=== PATIENT | male | born 1945 | race Caucasian/White ===

== ENCOUNTER 2017-03-21 10:48 | Emergency (ER) | payer MEDICARE ==
[2017-03-21 11:16] VITALS: BP 151/77
--- NOTE | 2017-03-21 12:30 | UC ---
Wally Pendleton Angela, scribed for Adama Koenig MD on 03/21/17 at 1215 . Shortness of Breath HPI - HPI Summary HPI Summary: This pt is a 71 y/o male presenting to [facility] c/o intermittent shortness of breath for the last 2-3 days. He notes feeling weakness today upon waking up but had some relief after eating breakfast. Currently, pt feels short of breath again and struggles to get air in with no pain. Pt reports SOB when sleeping and with ambulation as well. 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 Pt reports using Windex to clean.Pt denies chest pain, chest tightness , chest pressure, cough, wheezing, sweating, fever, chills, leg pain or swelling , weight change, recent long travel. Pt denies any recent exercises and any PMHx of asthma, heart problems, and high cholesterol - History of Current Complaint Chief Complaint: UCGeneralIllness Stated Complaint: SOB Time Seen by Provider: 03/21/17 12:00 Hx Obtained From: Patient Onset/Duration: Lasting Days Timing: Intermittent Episodes Lasting: Aggrevating Factors: Movement, Recumbent Position Alleviating Factors: Nothing Associated Signs & Symptoms: Negative: Cough (Productive), Cough (Nonproductive) , Cough (Bloody Sputum), Wheezing, Chest Pain w/Cough, Chest Pain Unrelated to Cough, Fever, Chills, Diaphoresis, Calf Pain/Swelling - Allergy/Home Medications Allergies/Adverse Reactions: Allergies Allergy/AdvReac Type Severity Reaction Status Date / Time No Known Allergies Allergy Verified 03/21/17 11:09 Home Medications: Home Medications NK [No Home Medications Reported] 03/21/17 [History Confirmed 03/21/17] PMH/Surg Hx/FS Hx/Imm Hx - Surgical History Surgical History: Yes Surgery Procedure, Year, and Place: ear. right arm - Family History Known Family History: Positive: Cardiac Disease - Father Negative: Hypertension - Social History Alcohol Use: Rare Substance Use Type: None Smoking Status (MU): Former Smoker Review of Systems Constitutional: Negative Skin: Negative Eyes: Negative ENT: Negative Respiratory: Shortness Of Breath Cardiovascular: Negative Gastrointestinal: Negative Musculoskeletal: Negative Neurological: Weakness All Other Systems Reviewed And Are Negative: Yes Physical Exam Triage Information Reviewed: Yes Vital Signs: Initial Vital Signs Temp 98.9 F 03/21/17 11:10 Pulse 66 03/21/17 11:10 Resp 16 03/21/17 11:10 BP 151/77 03/21/17 11:10 Pulse Ox 100 03/21/17 11:10 Vital Signs Reviewed: Yes - Additional Comments The patient is well-nourished in no acute distress and in no acute pain. The skin is warm and dry and skin color reflects adequate perfusion. HEENT: The head is normocephalic and atraumatic. The pupils are equal and reactive. The conjunctivae are clear and without drainage. Nares are patent and without drainage. Neck is supple with full range of motion and non-tender. There is no neck vein distension. Respiratory: Chest is non-tender. Lungs are clear to auscultation and breath sounds are symmetrical and equal. Cardiovascular: Hear is regular rate and rhythm. There is no murmur or rub auscultated. There is no peripheral edema and pulses are symmetrical and equal. The capillary refill is less than 2 seconds. The pt is not cyanotic. Abdomen: The abdomen is soft and non-tender. There are normal bowel sounds heard in all four quadrants and there is no organomegaly palpated. Musculoskeletal: There is no back pain noted. Extremities are non-tender with full range of motion. There is good capillary refill. There is no peripheral edema or calf tenderness elicited. Neurological: Patient is alert and oriented to person, place and time. The patient has symmetrical motor strength in all four extremities. Psychiatric: The patient has an appropriate affect and does not exhibit any anxiety or depression. Diagnostics - EKG Cardiac Rate: NL Cardiac Rhythm: LBBB: New ST Segment: Normal Shortness of Breath Dx - Course Course Of Treatment: I explained to the pt we are unable to do diagnostic work up and recommend transfer to the ED for further work up. The pt agreed to this plan. We will discharge him to the ED. - Differential Dx/Diagnosis Differential Diagnosis/HQI/PQRI: Bronchitis, CHF, IN, Pneumonia, Pulmonary Embolism Provider Diagnoses: Dyspnea. Elevated BP Discharge - Discharge Plan Condition: Stable Disposition: OTHER Discharge Disposition Comment: Discharged to go to the Emergency Department for further work up. Patient Education Materials: Dyspnea (ED) Additional Instructions: Your blood pressure was elevated at this visit. Please follow up with your primary care provider regarding your blood pressure reading. Please go to the Emergency Department for further work up regarding your dyspnea. The documentation as recorded by the Wally luna Angela accurately reflects the service I personally performed and the decisions made by me, Adama Koenig MD.
== END 2017-03-21 12:33 ==
LOC: UCEAST 10:48
DX: R06.00 Dyspnea, unspecified (principal); R03.0 Elevated blood-pressure reading, without diagnosis of hypertension; Z87.891 Personal history of nicotine dependence; R94.31 Abnormal electrocardiogram [ECG] [EKG]
CPT/HCPCS: 93005; 99201; G0463

== ENCOUNTER 2017-03-21 13:52 | Inpatient (IN) | payer MEDICARE ==
[2017-03-21 14:40] LABS: Hematocrit 46 % (42-52); Hemoglobin 15.4 g/dl (14.0-18.0); Mean Corpuscular HGB Conc 33 g/dl (31-36); Mean Corpuscular Hemoglobin 30 pg (27-31); Mean Corpuscular Volume 89 fL (80-94); Mean Platelet Volume 8 um3 (7.4-10.4); Red Blood Count 5.19 10^6/ul (4.0-5.4); Red Cell Distribution Width 13 % (10.5-15); White Blood Count 6.4 10^3/ul (3.5-10.8)
--- NOTE | 2017-03-21 14:52 | RAD ---
HISTORY: Shortness of breath COMPARISONS: None VIEWS: 5: Frontal dual-energy and lateral views of the chest. FINDINGS: CARDIOMEDIASTINAL SILHOUETTE: The cardiomediastinal silhouette is normal. RAMIRO: The ramiro are normal. PLEURA: The costophrenic angles are sharp. No pleural abnormalities are noted. LUNG PARENCHYMA: The lungs are clear. ABDOMEN: The upper abdomen is clear. There is no subphrenic gas. BONES AND SOFT TISSUES: Degenerative changes are noted along the spine. OTHER: None. IMPRESSION: NO ACTIVE CARDIOPULMONARY DISEASE.
[2017-03-21 14:53] LABS: Albumin 4.2 g/dL (3.2-5.2); BUN/Creatinine Ratio 19.2 (8-20); Calcium 9.2 mg/dL (8.6-10.3); EGFR African American 125.8 (>60); EGFR Non-African American 97.8 (>60); Globulin 2.7 g/dL (2-4); Potassium 4.1 mmol/L (3.5-5.0); Total Bilirubin 0.7 mg/dL (0.2-1.0); Total Protein 6.9 g/dL (6.4-8.9)
[2017-03-21] MEDS ORDERED: Acetaminophen TAB* 325 MG PO PRN (16:42)
[2017-03-21] MEDS ORDERED: Ondansetron INJ* 2 MG/ML VIAL IV PRN (16:42)
[2017-03-21] MEDS ORDERED: cefTRIAXone VIAL(*) 1,000 MG in NS 0.9% 50 ML* 50 ML IVPB SCH (17:00)
[2017-03-21 17:05] LABS: Magnesium 1.9 mg/dL (1.9-2.7)
[2017-03-21 17:16] LABS: TSH (Thyroid Stimulating Horm) 1.4 mcIU/mL (0.34-5.60)
--- NOTE | 2017-03-21 18:34 | ED ---
Eliseo Pendleton Benjamin, scribed for Kenneth Jacobson MD on 03/21/17 at 1415 . Shortness of Breath - HPI Summary HPI Summary: 71yo male c/o intermittent SOB that comes and goes independent from exertion. Pt was first seen at and comes to ED for further evaluation. Pt states gradual onset since 3-4 days ago. Pt also reports difficulty digesting; pt has been burping very frequently after meal. Pt denies leg swelling or CP. No cardiac and respiratory hx and surgical hx of inner ear surgery. - History of Current Complaint Chief Complaint: EDShortnessOfBreath Time Seen by Provider: 03/21/17 14:00 Hx Obtained From: Patient, Family/Harvester Operator - Onset/Duration: Lasting Days - 3-4 days, Still Present Timing: Intermittent Episodes Lasting: Current Severity: Mild Dyspnea At: Rest Aggrevating Factors: Nothing Alleviating Factors: Nothing Associated Signs & Symptoms: Negative - Allergy/Home Medications Allergies/Adverse Reactions: Allergies Allergy/AdvReac Type Severity Reaction Status Date / Time No Known Allergies Allergy Verified 03/21/17 11:09 PMH/Surg Hx/FS Hx/Imm Hx Cardiovascular History: Denies: Hx Coronary Artery Disease, Hx Hypertension - Surgical History Surgery Procedure, Year, and Place: ear. right arm Infectious Disease History: Denies: Traveled Outside the [place] in Last 30 Days - Family History Known Family History: Positive: Cardiac Disease - Father Negative: Hypertension - Social History Occupation: Retired Lives: With Family Alcohol Use: Rare Substance Use Type: Reports: None Smoking Status (MU): Never Smoked Tobacco Review of Systems Constitutional: Negative Eyes: Negative ENT: Negative Negative: Chest Pain Positive: Shortness Of Breath. Negative: Cough Gastrointestinal: Negative Genitourinary: Negative Musculoskeletal: Negative Skin: Negative Neurological: Negative Psychological: Normal All Other Systems Reviewed And Are Negative: Yes Physical Exam Triage Information Reviewed: Yes Vital Signs On Initial Exam: Initial Vitals Temp Pulse Resp BP Pulse Ox 97.8 F 75 16 163/96 98 03/21/17 13:54 03/21/17 13:54 03/21/17 13:54 03/21/17 13:54 03/21/17 13:54 Vital Signs Reviewed: Yes Appearance: Positive: Well-Appearing, No Pain Distress, Well-Nourished Skin: Positive: Warm, Skin Color Reflects Adequate Perfusion, Dry Head/Face: Positive: Normal Head/Face Inspection Eyes: Positive: Normal ENT: Positive: Normal ENT inspection, Hearing grossly normal Neck: Positive: Supple, Nontender Respiratory/Lung Sounds: Positive: Clear to Auscultation, Breath Sounds Present Cardiovascular: Positive: IRR - Irregularly irregular beat, Murmur - soft systolic ejection murmurs. Abdomen Description: Positive: Nontender, Soft Bowel Sounds: Positive: Present Musculoskeletal: Positive: Strength/ROM Intact Neurological: Positive: Sensory/Motor Intact, Alert, Oriented to Person Place, Time Psychiatric: Positive: Affect/Mood Appropriate Diagnostics - Vital Signs Vital Signs Temp Pulse Resp BP Pulse Ox 03/21/17 13:54 97.8 F 75 16 163/96 98 - Laboratory Lab Results: Lab Results 03/21/17 03/21/17 03/21/17 Range/Units 14:15 14:15 14:15 WBC 6.4 (3.5-10.8) 10^3/ul RBC 5.19 (4.0-5.4) 10^6/ul Hgb 15.4 (14.0-18.0) g/dl Hct 46 (42-52) % MCV 89 (80-94) fL MCH 30 (27-31) pg MCHC 33 (31-36) g/dl RDW 13 (10.5-15) % Plt Count 260 (150-450) 10^3/ul MPV 8 (7.4-10.4) um3 Neut % (Auto) 70.0 (38-83) % Lymph % (Auto) 20.8 L (25-47) % [place] % (Auto) 7.1 (1-9) % Eos % (Auto) 1.5 (0-6) % Baso % (Auto) 0.6 (0-2) % Absolute Neuts (auto) 4.5 (1.5-7.7) 10^3/ul Absolute Lymphs (auto) 1.3 (1.0-4.8) 10^3/ul Absolute Monos (auto) 0.5 (0-0.8) 10^3/ul Absolute Eos (auto) 0.1 (0-0.6) 10^3/ul Absolute Basos (auto) 0 (0-0.2) 10^3/ul Absolute Nucleated RBC 0 10^3/ul Nucleated RBC % 0 INR (Anticoag Therapy) (0.89-1.11) D-Dimer, Quantitative (Less Than 230) ng/mL Sodium 135 (133-145) mmol/L Potassium 4.1 (3.5-5.0) mmol/L Chloride 103 (101-111) mmol/L Carbon Dioxide 26 (22-32) mmol/L Anion Gap 6 (2-11) mmol/L BUN 15 (6-24) mg/dL Creatinine 0.78 (0.67-1.17) mg/dL Est GFR ( Amer) 125.8 (>60) Est GFR (Non-Af Amer) 97.8 (>60) BUN/Creatinine Ratio 19.2 (8-20) Glucose 163 H (70-100) mg/dL Lactic Acid 1.2 (0.5-2.0) mmol/L Calcium 9.2 (8.6-10.3) mg/dL Magnesium 1.9 (1.9-2.7) mg/dL Total Bilirubin 0.70 (0.2-1.0) mg/dL AST 16 (13-39) U/L ALT 13 (7-52) U/L Alkaline Phosphatase 63 (34-104) U/L Troponin I 0.00 (<0.04) ng/mL B-Natriuretic Peptide ( - 100) pg/mL Total Protein 6.9 (6.4-8.9) g/dL Albumin 4.2 (3.2-5.2) g/dL Globulin 2.7 (2-4) g/dL Albumin/Globulin Ratio 1.6 (1-3) TSH 1.40 (0.34-5.60) mcIU/mL 03/21/17 03/21/17 Range/Units 14:15 14:15 WBC (3.5-10.8) 10^3/ul RBC (4.0-5.4) 10^6/ul Hgb (14.0-18.0) g/dl Hct (42-52) % MCV (80-94) fL MCH (27-31) pg MCHC (31-36) g/dl RDW (10.5-15) % Plt Count (150-450) 10^3/ul MPV (7.4-10.4) um3 Neut % (Auto) (38-83) % Lymph % (Auto) (25-47) % [place] % (Auto) (1-9) % Eos % (Auto) (0-6) % Baso % (Auto) (0-2) % Absolute Neuts (auto) (1.5-7.7) 10^3/ul Absolute Lymphs (auto) (1.0-4.8) 10^3/ul Absolute Monos (auto) (0-0.8) 10^3/ul Absolute Eos (auto) (0-0.6) 10^3/ul Absolute Basos (auto) (0-0.2) 10^3/ul Absolute Nucleated RBC 10^3/ul Nucleated RBC % INR (Anticoag Therapy) 0.96 (0.89-1.11) D-Dimer, Quantitative < 200 (Less Than 230) ng/mL Sodium (133-145) mmol/L Potassium (3.5-5.0) mmol/L Chloride (101-111) mmol/L Carbon Dioxide (22-32) mmol/L Anion Gap (2-11) mmol/L BUN (6-24) mg/dL Creatinine (0.67-1.17) mg/dL Est GFR ( Amer) (>60) Est GFR (Non-Af Amer) (>60) BUN/Creatinine Ratio (8-20) Glucose (70-100) mg/dL Lactic Acid (0.5-2.0) mmol/L Calcium (8.6-10.3) mg/dL Magnesium (1.9-2.7) mg/dL Total Bilirubin (0.2-1.0) mg/dL AST (13-39) U/L ALT (7-52) U/L Alkaline Phosphatase (34-104) U/L Troponin I (<0.04) ng/mL B-Natriuretic Peptide 136 H ( - 100) pg/mL Total Protein (6.4-8.9) g/dL Albumin (3.2-5.2) g/dL Globulin (2-4) g/dL Albumin/Globulin Ratio (1-3) TSH (0.34-5.60) mcIU/mL Result Diagrams: 03/21/17 14:15 03/21/17 14:15 Lab Statement: Any lab studies that have been ordered have been reviewed, and results considered in the medical decision making process. - EKG 1406. Cardiac Rate: NL - 83bpm EKG Rhythm: Sinus Rhythm Ectopy: None EKG Interpretation: Ventricular trigeminy, borderline RBBB Course/Dx - Course Course Of Treatment: Reviewed pts medication and allergy lists. High blood pressure noted. Assessment/Plan: Mr. Hernadez has had episodes of SOB accompanied (in retrospect) by fluttering in his chest. He was found to be in trigeminy on arrival and to have frequent VPC's while here. He will be admitted to a monitored bed for further W/U. - Diagnoses Provider Diagnoses: Dyspnea, Ventricular trigeminy - Physician Notifications Discussed Care of Patient With: Dr. Rosales, Dr. Moreno Discharge - Discharge Plan Condition: Stable Disposition: ADMITTED TO [facility] The documentation as recorded by the Eliseo luna Benjamin accurately reflects the service I personally performed and the decisions made by me, Kenneth Jacobson MD.
[2017-03-21] MEDS: Heparin VIAL(*) 5000 UNITS/ML VIAL (FIVE THOUSAND) SUBCUT SCH ×2 (21:34→22:03)
--- NOTE | 2017-03-21 22:19 | HP ---
HISTORY AND PHYSICAL: DATE OF ADMISSION: 03/21/17 PRIMARY CARE PROVIDER: None. ATTENDING PHYSICIAN WHILE IN THE HOSPITAL: Malissa Moreno DO * (report dictated by Tristen Alicea NP). CHIEF COMPLAINT: 1. Dyspnea on exertion. 2. Weakness. HISTORY OF PRESENT ILLNESS: Mr. Hernadez is a 71-year-old male patient with really no past medical history, comes in today. He says he has had about 3 days of having worsening shortness of breath particularly with exertion. He has noticed that his activity level has decreased. He has noticed that he just has not been feeling well. He notes when he goes up a flight of stairs, he feels like he is pretty tired and he also feels short of breath. He went to [facility] today. It was found that he was in trigeminy and he was sent to the ER to be evaluated. He specifically denies having any chest pressure. He denies having any shortness of breath now. Denies any orthopnea. Denies any syncopal episodes. Denies having any palpitations. He says he does take an aspirin daily, but there was concern because of the trigeminy, and we were asked to evaluate for admission. He does state that recently about 5 weeks ago , he was noted to have a bull's eye type lesion after a tick bite, he was put on doxycycline. He took it for a total of 7 days instead of the full 10 as it was bothering his stomach. He did say that shortly thereafter the antibiotics, he noticed another rash, he was prescribed a topical antibiotic and it went away with that. Unfortunately, though he came in today, he was found to be in trigeminy and the hospitalist service was asked to evaluate for admission. PAST MEDICAL HISTORY: It was denied. PAST SURGICAL HISTORY: He has had left ear surgery. HOME MEDICATIONS: Include aspirin 81 mg daily. ALLERGIES TO MEDICATIONS: Include no known drug allergies. FAMILY HISTORY: Mother had a heart attack. Father had a history of cancer and CAD. SOCIAL HISTORY: He does not smoke, does not drink. The surrogate decision maker is his . REVIEW OF SYSTEMS: There is no documented fever. He denied having any significant weight change. There was no double vision. He denies having any ear discharge. There was no rhinorrhea. There was no sore throat. No thyroid enlargement. Denied having any chest pain. There was no orthopnea. No nocturnal dyspnea. No dyspnea on exertion. There was no abdominal pain. No nausea. No vomiting. No dysuria. No frequency. No seizure. No loss of consciousness. No pruritus. No skin ulcerations. Review of 14 systems was completed, all others negative. PHYSICAL EXAMINATION GENERAL: At this time, Mr. Hernadez is 71-year-old male patient. He appears to be well nourished, well developed and does not appear to be in any acute distress. VITAL SIGNS: Blood pressure 134/74, pulse of 72, respirations 17, O2 sat 96%, temperature 99.6. HEENT: Head is atraumatic, normocephalic. Eyes: EOMs intact. Sclerae are anicteric, not pale. Throat: Oral mucosa appears to be moist. No oropharyngeal erythema. NECK: Supple. LUNGS: Clear to auscultation. No wheezes, rales, or rhonchi. HEART: Sounds S1, S2. Irregular rate and rhythm. No murmurs, rubs, or gallops. ABDOMEN: Soft, flat, and nontender. Bowel sounds present. EXTREMITIES: Pulses 2+ throughout. He is able to move all 4 extremities with 5 /5 strength. NEUROLOGIC: The patient is awake, alert, and oriented x3. Tongue midline. Pool Lifeguard were equal. No gross focal deficits. SKIN: Grossly intact. LABORATORY DATA/DIAGNOSTIC STUDIES: Labs today revealed WBC 6.4, RBC of 5.19, hemoglobin 15.4, hematocrit 46, platelet count of 260. INR 0.96. D-dimer less than 200. Sodium 135, potassium of 4, chloride of 103, bicarb 26, BUN 15, creatinine 0.78, glucose 162. Lactic 1.2. Calcium 9.2. Total bili 0.7. AST 16, ALT 13, alk phos 60. Troponin 0. BNP 136. Albumin of 4.2. He had a chest x-ray obtained today as well, which revealed no active cardiopulmonary disease. EKG showed sinus rhythm with trigeminy, no ST elevation or T-wave inversions. No previous for comparison. Old medical records were reviewed. ASSESSMENT AND PLAN: Mr. Hernadez is a 71-year-old male patient coming in to the ER today with complaints of dyspnea on exertion, fatigue, just not feeling well with recent Lyme exposure. He will be admitted under observation status for: 1. Trigeminy. Again, certainly Lyme typically causes heart block, but I do think it would be warranted to put him on Rocephin. I did place a call out to our ID specialist to see if he has seen this before. I do think that we should check mag, TSH, echo, stress test as well. Place him on telemetry. He is to continue the aspirin and follow him closely and I am putting him empirically on antibiotics and we will send off Lyme serology. Check lipid panel, A1c. Start him on baby aspirin. Continue to follow. 2. DVT prophylaxis. He will be placed on heparin subcu. 3. Code status, full code. 4. Fluids, electrolytes, and nutrition. He can have a heart heathy diet, then he will be n.p.o. after midnight. TIME SPENT: Time spent on the admission was 60 minutes, greater than half the time spent [id number] with the patient obtaining my history and physical; other half time spent going over the plan of care with the patient and implementing the plan of care. I discussed the plan of care with my attending, Dr. Moreno, who is in agreement. TRISTEN ALICEA NP [id number]/CPS #: [id number] KRISTIN
[2017-03-22 05:05] LABS: Hematocrit 44 % (42-52); Mean Corpuscular HGB Conc 34 g/dl (31-36); Mean Corpuscular Hemoglobin 30 pg (27-31); Mean Corpuscular Volume 89 fL (80-94); Mean Platelet Volume 8 um3 (7.4-10.4); Red Blood Count 4.97 10^6/ul (4.0-5.4); Red Cell Distribution Width 13 % (10.5-15); White Blood Count 5.7 10^3/ul (3.5-10.8)
[2017-03-22 05:21] LABS: BUN/Creatinine Ratio 19.3 (8-20); Calcium 9.5 mg/dL (8.6-10.3); EGFR African American 117.1 (>60); EGFR Non-African American 91.1 (>60); HDL Cholesterol 50.9 mg/dL; Potassium 4.3 mmol/L (3.5-5.0)
[2017-03-22] MEDS: Heparin VIAL(*) 5000 UNITS/ML VIAL (FIVE THOUSAND) SUBCUT SCH ×2 (06:10→14:18)
[2017-03-22] MEDS ORDERED: Aspirin Low Dose CHEW TAB* 81 MG PO SCH (09:00)
[2017-03-22] MEDS ORDERED: Lisinopril TAB* 5 MG PO SCH (10:00)
--- NOTE | 2017-03-22 10:08 | RAD ---
INDICATION: Chest pain COMPARISON: None TECHNIQUE: A single day SPECT protocol was utilized. Rest images were acquired following the intravenous injection of 10.2 millicuries of technetium 99m tetrofosmin. Exercise stress images were acquired following the intravenous administration of 25.8 millicuries of technetium 99m tetrofosmin. The examination could not be gated due to cardiac arrhythmia The patient was exercised to a peak heart rate of 208 which is greater than 100% of age predicted maximum. FINDINGS: There are no defects of the stress-induced or fixed nature. The cardiac chamber size is normal. Wall motion and ejection fraction could not be calculated due to arrhythmia. IMPRESSION: A NON GATED EXAMINATION DEMONSTRATES NO DEFECTS OF A STRESS-INDUCED OR FIXED NATURE ASSESSMENT: LOW-RISK Based on imaging criteria from ACC/AHA 2002 Guideline Update for the Management of Patients With Chronic Stable Angina Table 23. Noninvasive Risk Stratification.
--- NOTE | 2017-03-22 12:13 | ECHO ---
Patient: CASTRO STRATTON [facility] Rec#: [id number] : 1945 Date: 03/22/2017 Age: 71y Height: 187.96 cm / 74.0 in Weight: 81.65 kg / 180.0 lbs Sex: M BSA: 2.08 Room#: 431 Admit Date#: 03/21/2017 Type: Inpatient Referring: Jose Huffman NP Reading: Marly Santos MD Rocket Motor Tester: Genoveva Salazar [facility] Transthoracic Echocardiogram Indication: Trigeminy BP: 121/81 HR: 56 Rhythm: Bradycardia Findings History: Recent tick bite with a rash, SOB. Technical Comments: The study quality is good. Completed at 1205. Left Ventricle: The left ventricular chamber size is normal. There is normal left ventricular systolic function. The estimated ejection fraction is 55-60%. The assessment of diastolic function is non-diagnostic. Left Atrium: The left atrium is normal in size. Right Ventricle: The right ventricular cavity size is normal. The right ventricular global systolic function is normal. Right Atrium: The right atrial cavity size is normal. Aortic Valve: The aortic valve is trileaflet. There is mild aortic regurgitation. There is no evidence of aortic stenosis. Mitral Valve: The mitral valve leaflets are mildly thickened. There is a trace of mitral regurgitation. There is no evidence of mitral stenosis. Tricuspid Valve: The tricuspid valve leaflets are normal. There is a physiologic tricuspid regurgitation. Unable to estimate the right ventricular systolic pressure. Pulmonic Valve: The pulmonic valve structure is not well visualized. Pericardium: A pericardial fat pad is visualized. Aorta: There is mild dilatation of the ascending aorta. There is no dilatation of the aortic arch. There is mild dilatation of the aortic root. Pulmonary Artery: The main pulmonary artery is not well visualized. Venous: The venous system is not well visualized. Conclusions The left ventricular chamber size is normal. There is normal left ventricular systolic function. The estimated ejection fraction is 55-60%. The right ventricular global systolic function is normal. There is mild aortic regurgitation. There is a trace of mitral regurgitation. There is mild dilatation of the ascending aorta. No prior echo to compare. Measurements Name Value Normal Range RVIDd (AP) 2D 2.7 cm (0.9 - 2.6) RVDdMajor (2D) 2.6 cm (2.2 - 4.4) RAd ISD 4CH 5.8 cm (3.4 - 4.9) RA (A4C)W 3.5 cm (2.9 - 4.6) IVSd (2D) 1 cm (0.6 - 1) LVPWd (2D) 1 cm (0.6 - 1) LVIDd (2D) 4 cm (3.6 - 5.4) LVIDs (2D) 2.5 cm - LV FS (2D) 38 % (25 - 45) Aortic Annulus 2.2 cm (1.4 - 2.6) Ao root diameter (2D) 3.7 cm (2.1 - 3.5) Ascending Ao 3.6 cm (2.1 - 3.4) Aortic arch 2.3 cm (1.8 - 3.4) Descending Ao 0.6 cm - LA dimension (AP) 2D 3.2 cm (2.3 - 3.8) LAd ISD 4CH 4.5 cm (2.9 - 5.3) LA ISD 4CH W 3.8 cm (2.5 - 4.5) Name Value Normal Range LA ESV SP 4CH (A/L) 48 ml - LA ESV SP 2CH (A/L) 35 ml - LA ESV BP (A/L) 44 ml - LA ESV BP (A/L) index 21.19 ml/m2 - LA ESV SP 4CH (MOD) 45 ml - LA ESV SP 2CH (MOD) 30 ml - Name Value Normal Range MV E-wave Vmax 0.7 m/sec - MV deceleration time 208 msec - MV A-wave Vmax 0.7 m/sec - MV E:A ratio 1.04 ratio - LV septal e' Vmax 0.07 m/sec - LV lateral e' Vmax 0.13 m/sec - LV E:e' septal ratio 10 ratio - LV E:e' lateral ratio 5.38 ratio - Name Value Normal Range AV Vmax 1.2 m/sec - AV VTI 31.5 cm - AV peak gradient 5.88 mmHg - AV mean gradient 2.61 mmHg - LVOT Vmax 1.1 m/sec - LVOT VTI 23.7 cm - LVOT peak gradient 4.83 mmHg - LVOT mean gradient 2.26 mmHg - AR PHT 632 msec - AR peak gradient 49.92 mmHg - Name Value Normal Range PV Vmax 0.9 m/sec - PV peak gradient 3.29 mmHg -
--- NOTE | 2017-03-22 17:26 | PN ---
Subjective Date of Service: 03/22/17 Interval History: Pt had hypertensive response to treadmill with SBP in 240's with non sustained SVT in recovery phase. then became diaphoretic and flushed in nuclear lab. / afterward ate breakfast and feels well now. Has had had CAZARES for several weeks. Relocated from [place] this year and has no PCP Objective Active Medications: Acetaminophen (Tylenol Tab*) 650 mg PO Q4H PRN PRN Reason: FEVER/PAIN Aspirin (Aspirin Low Dose Tab*) 81 mg PO DAILY PENDING SALE TO [facility] Last Admin: 03/22/17 10:34 Dose: 81 mg Heparin Sodium (Porcine) (Heparin Vial(*)) 5,000 units SUBCUT Q8HR PENDING SALE TO [facility] Last Admin: 03/22/17 14:18 Dose: 5,000 units Lisinopril (Prinivil Tab*) 5 mg PO DAILY PENDING SALE TO [facility] Last Admin: 03/22/17 10:34 Dose: 5 mg Ondansetron HCl (Zofran Inj*) 4 mg IV Q6H PRN PRN Reason: NAUSEA Vital Signs 03/22/17 15:11 Temperature 97.7 F Pulse Rate 80 Respiratory 16 Rate Blood Pressure 124/67 (mmHg) O2 Sat by Pulse 100 Oximetry Oxygen Devices in Use Now: None Appearance: 71 yo f in nAD, aAOx3 Eyes: No Scleral Icterus, PERRLA Ears/Nose/Mouth/Throat: NL Teeth, Lips, Gums, Mucous Membranes Moist Neck: NL Appearance and Movements; NL JVP, Trachea Midline Respiratory: Symmetrical Chest Expansion and Respiratory Effort, Clear to Auscultation Cardiovascular: NL Sounds; No Murmurs; No JVD, RRR Abdominal: NL Sounds; No Tenderness; No Distention Lymphatic: No Cervical Adenopathy Extremities: No Edema, No Clubbing, Cyanosis Skin: No Rash or Ulcers, No Nodules or Sclerosis Neurological: Alert and Oriented x 3, NL Muscle Strength and Tone Result Diagrams: 03/22/17 04:57 03/22/17 04:57 Additional Lab and Data: Lab Results 03/21/17 03/21/17 03/21/17 Range/Units 14:15 14:15 14:15 WBC 6.4 (3.5-10.8) 10^3/ul RBC 5.19 (4.0-5.4) 10^6/ul Hgb 15.4 (14.0-18.0) g/dl Hct 46 (42-52) % MCV 89 (80-94) fL MCH 30 (27-31) pg MCHC 33 (31-36) g/dl RDW 13 (10.5-15) % Plt Count 260 (150-450) 10^3/ul MPV 8 (7.4-10.4) um3 Neut % (Auto) 70.0 (38-83) % Lymph % (Auto) 20.8 L (25-47) % Banner % (Auto) 7.1 (1-9) % Eos % (Auto) 1.5 (0-6) % Baso % (Auto) 0.6 (0-2) % Absolute Neuts (auto) 4.5 (1.5-7.7) 10^3/ul Absolute Lymphs (auto) 1.3 (1.0-4.8) 10^3/ul Absolute Monos (auto) 0.5 (0-0.8) 10^3/ul Absolute Eos (auto) 0.1 (0-0.6) 10^3/ul Absolute Basos (auto) 0 (0-0.2) 10^3/ul Absolute Nucleated RBC 0 10^3/ul Nucleated RBC % 0 INR (Anticoag Therapy) (0.89-1.11) D-Dimer, Quantitative (Less Than 230) ng/mL Sodium 135 (133-145) mmol/L Potassium 4.1 (3.5-5.0) mmol/L Chloride 103 (101-111) mmol/L Carbon Dioxide 26 (22-32) mmol/L Anion Gap 6 (2-11) mmol/L BUN 15 (6-24) mg/dL Creatinine 0.78 (0.67-1.17) mg/dL Est GFR ( Amer) 125.8 (>60) Est GFR (Non-Af Amer) 97.8 (>60) BUN/Creatinine Ratio 19.2 (8-20) Glucose 163 H (70-100) mg/dL Lactic Acid 1.2 (0.5-2.0) mmol/L Calcium 9.2 (8.6-10.3) mg/dL Magnesium 1.9 (1.9-2.7) mg/dL Total Bilirubin 0.70 (0.2-1.0) mg/dL AST 16 (13-39) U/L ALT 13 (7-52) U/L Alkaline Phosphatase 63 (34-104) U/L Troponin I 0.00 (<0.04) ng/mL B-Natriuretic Peptide ( - 100) pg/mL Total Protein 6.9 (6.4-8.9) g/dL Albumin 4.2 (3.2-5.2) g/dL Globulin 2.7 (2-4) g/dL Albumin/Globulin Ratio 1.6 (1-3) TSH 1.40 (0.34-5.60) mcIU/mL 03/21/17 03/21/17 Range/Units 14:15 14:15 WBC (3.5-10.8) 10^3/ul RBC (4.0-5.4) 10^6/ul Hgb (14.0-18.0) g/dl Hct (42-52) % MCV (80-94) fL MCH (27-31) pg MCHC (31-36) g/dl RDW (10.5-15) % Plt Count (150-450) 10^3/ul MPV (7.4-10.4) um3 Neut % (Auto) (38-83) % Lymph % (Auto) (25-47) % Banner % (Auto) (1-9) % Eos % (Auto) (0-6) % Baso % (Auto) (0-2) % Absolute Neuts (auto) (1.5-7.7) 10^3/ul Absolute Lymphs (auto) (1.0-4.8) 10^3/ul Absolute Monos (auto) (0-0.8) 10^3/ul Absolute Eos (auto) (0-0.6) 10^3/ul Absolute Basos (auto) (0-0.2) 10^3/ul Absolute Nucleated RBC 10^3/ul Nucleated RBC % INR (Anticoag Therapy) 0.96 (0.89-1.11) D-Dimer, Quantitative < 200 (Less Than 230) ng/mL Sodium (133-145) mmol/L Potassium (3.5-5.0) mmol/L Chloride (101-111) mmol/L Carbon Dioxide (22-32) mmol/L Anion Gap (2-11) mmol/L BUN (6-24) mg/dL Creatinine (0.67-1.17) mg/dL Est GFR ( Amer) (>60) Est GFR (Non-Af Amer) (>60) BUN/Creatinine Ratio (8-20) Glucose (70-100) mg/dL Lactic Acid (0.5-2.0) mmol/L Calcium (8.6-10.3) mg/dL Magnesium (1.9-2.7) mg/dL Total Bilirubin (0.2-1.0) mg/dL AST (13-39) U/L ALT (7-52) U/L Alkaline Phosphatase (34-104) U/L Troponin I (<0.04) ng/mL B-Natriuretic Peptide 136 H ( - 100) pg/mL Total Protein (6.4-8.9) g/dL Albumin (3.2-5.2) g/dL Globulin (2-4) g/dL Albumin/Globulin Ratio (1-3) TSH (0.34-5.60) mcIU/mL Assess/Plan/Problems-Billing Assessment: 71 yo M with no significant PMhx presented with CAZARES and was noted to have trigeminy on EKG. Recent Lyme treated x 5 days 5 weeks ago - Patient Problems (1) CAZARES (dyspnea on exertion) Comment: D/w Dr. Santos who will see pt in consult Pt likely has symptoms of uncontrolled HTN due to baseline bradycaria, will start ACEI Stress test -low risk. TSH 1.4 Status and Disposition: OBV, may be able to go home after cardiology consult today Discharge prepared
[2017-03-22 19:15] VITALS: BP 127/70
--- NOTE | 2017-03-23 01:37 | CONS ---
CARDIOLOGY CONSULTATION: DATE OF CONSULT: 03/22/17 REASON FOR CONSULTATION: Dysrhythmias with stress testing and shortness of breath. CHIEF COMPLAINT: Shortness of breath. HISTORY OF PRESENT ILLNESS: The patient is a 71-year-old gentleman, who does not see doctors regularly. 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 He admits that about a month before he had been [place] and somewhat short of breath, which surprised him and he admits he does not do a lot of activity, he mows the lawn slowly. He does some chores around the house and walking at the park and window washing and more vigorous activity than is his usual. The patient had also related that he had had a tick bite about 4 to 5 weeks prior to this presentation, had been treated at [facility] with antibiotics that made his stomach hurt so he lost 3 days of these and he was worried that the tick bite and Lyme disease was the reason for his shortness of breath. The patient is not on any regular medications. He denies any recent intake of nonsteroidals or ouea-itu-nwknnua medications. He denies any recent travel. He denies any other infections other than the Lyme. The patient denies any palpitations or racing of the heart, chest pain, pressure, heaviness, neck or arm pain. He denies orthopnea or PND, but admits to some nocturia. PAST MEDICAL HISTORY: The patient has a past medical history of a cyst on his ear and denies any history of hypertension or hospitalizations. MEDICATIONS: He was on no outpatient medications. ALLERGIES: He has no known drug allergies. FAMILY HISTORY: Significant that his brother had a DVT and stroke, probable paradoxical embolus. He said his father had bypass surgery in his 70s and his father of colon cancer. His mother has a history of coronary artery disease. SOCIAL HISTORY: The patient smoked from about age 15 to age 24. No history of recreational drug use. He lived and worked in [place] for many years with several jobs, one at [employer], one in the [employer] industry among others. He is currently moved to [place] a gedp-dkl-s-half ago where his daughter lives. REVIEW OF SYSTEMS: As documented in the history of present illness, he has had recent Lyme disease, progressive exertional dyspnea with dyspnea on [place]. Positive for nocturia and pertinent negatives include no fevers, chills, sweats, orthopnea, PND, chest pain, pressure, heaviness, and all other review of systems was negative. PHYSICAL EXAM: The patient is of 6 feet 2 inches, weighs 178 pounds with a BMI of 23. Vital Signs: On admission, blood pressure 163/96, pulse was 75, respiratory rate is 16, oxygen saturation 98% on room air, T-max 99.6. General Appearance: Tall, lean male in no acute distress. Psychologically, pleasant and cooperative, vague affect. Neurologically, awake, alert, and oriented to person, place, and time. Cranial nerves II through XII grossly intact. Speech is articulate. Comprehension seems good. He moves well in the bed. I did not watch him walk. Skin odell warm, dry. No cyanosis or rashes appreciated. Varicosities in the lower extremities incidentally noted. HEENT: Pupils are equal and round. Mucous membranes moist. Neck without appreciable increase in JVP. No lymphadenopathy or thyromegaly appreciated. Strong carotid pulses. Free of bruits. Lungs were clear with good effort. No wheezes, rales, rhonchi. Coronary: S1, S2 regular without murmurs or rubs. Abdomen: Flat, active bowel sounds, soft, nontender. No hepatosplenomegaly, masses, or bruits. Strong femoral pulses bilaterally that are free of bruits. The distal extremities show strong posterior tibial pulses and dorsalis pedal pulses and nonedematous with mild superficial varicosities noted. DIAGNOSTIC STUDIES/LAB DATA: ECGs reviewed on admission, sinus bradycardia, 55 beats per minute, QRS axis -30, normal AV conduction times. He has a right bundle- branch block and normal ST segments. EKG #2 shows normal sinus rhythm, 80 beats a minute with ventricular trigeminy. ECG #3, sinus bradycardia, 50 beats a minute. All with right bundle-branch block. Exercise Myoview study done today showed the patient was able to exercise to 1 minute into stage 3 of the standard Thomas protocol with a resting blood pressure of 173/96, peak blood pressure 241/88 with slow recovery. He had no ST changes, but did have PVCs and supraventricular tachycardia, regular tachycardia at 200 beats a minute that broke spontaneously. The nuclear portion of the study showed no perfusion defects, no inducible ischemia, no old heart attack, and was unable to be gated. The patient's echocardiogram done today showed normal wall motion with an ejection fraction of 55% to 60%, mild aortic insufficiency, and mild dilatation of the ascending aorta at 3.6 cm. Labs show sodium 135; potassium 4.1; chloride 103; bicarb 26; glucose on admission 163, this morning fasting 107; BUN 15; creatinine 0.78, ALT of 13. Total cholesterol 177, triglycerides 77, LDL cholesterol 111, and HDL cholesterol 51. Troponin #1 0.00, troponin #2 0.00, troponin #3 is 0.00. INR 0.96, D-dimer less than 200. White count 6.4, hemoglobin 15.4, hematocrit 46, platelets 260. Chest x- ray showed no active disease. IMPRESSION: In summary, Mr. Hernadez is a 71-year-old gentleman, who does not see a physician, has been previously apparently healthy, who has presented with chief complaint of shortness of breath that occurred watching windows and a month ago [place]. He has been found to be hypertensive with marked hypertension on exertion and additionally with exertion, he has had frequent PVCs and supraventricular tachycardia at a rate of 200 beats a minute. I think the patient's dyspnea on exertion is probably multifactorial. I think deconditioning, possibly diet may be a factor (he states he uses sea salt) and I think the biggest issues are his hypertension and intermittent ectopy could well be contributing. Additionally, there could be a contribution his resting bradycardia and intermittent tachyarrhythmias with Lyme. I would recommend a trc-ludw-fpwlqvie antihypertensive and agree with the lisinopril initiated. I think the patient should be educated about avoiding excessive salt in his diet adding too much salt or using products high in salt. I think the patient needs to get on an exercise regimen with a goal of exercising up to 3 hours a week. For the dysrhythmias, we can follow him as an outpatient. If he has recurrent acute episodes, we could get an event monitor. If an antiarrhythmic were ever started, it would need to be one that does not lower rate such as flecainide or Tikosyn. He may be a candidate for EP evaluation and ablation down the road if the tachyarrhythmias continue to be a problem. In talking with the Hospitalist, if he has not in fact had Lyme titers drawn and if there is any concern that he had inadequate treatment for Lyme, we may want to consider empirically treating with a course of a different antibiotic than he had (i.e. cephalosporin instead of doxycycline if in fact he had doxycycline before) and/or looking drawing titers if this would be of benefit to determine if he still had active Lyme disease. He can follow up with Cardiology within a month, but needs to establish with a primary care physician here. Thank you for allowing me to assist in this nice gentleman's care. [id number]/[facility] #: [id number] KRISTIN
--- NOTE | 2017-03-23 14:02 | DS ---
CC: Dr. Santos * DISCHARGE SUMMARY: DATE OF ADMISSION: 03/21/17 DATE OF DISCHARGE: 03/22/17 PRIMARY CARE PROVIDER: None. DISCHARGE DIAGNOSES: 1. Dyspnea on exertion, most likely a symptom of uncontrolled hypertension. 2. Ventricular trigeminy that was asymptomatic. 3. Patient had an episode of supraventricular tachycardia when hypertensive and during recovery stage of treadmill cardiac stress test, which otherwise was noted to be at low risk. MEDICATIONS AT DISCHARGE: Include lisinopril 5 mg p.o. daily. LABORATORY DATA: Grossly unremarkable and include: On 03/22/17, sodium of 135, potassium 4.3, chloride 104, carbon dioxide 29, BUN 16, creatinine 0.83. Troponins were 0 throughout the patient's hospital stay. LDL of 111, total cholesterol of 177. TSH was noted to be 1.4. CBC: White blood cell count of 5.7, hemoglobin of 15.0, hematocrit of 44, and platelets of 245. D-dimer was below 200. Nuclear medicine cardiac stress test was done on 03/22/17, shows low risk with no defects or stress induced or fixed nature. Please note the patient became hypertensive during his treadmill stress test part with the systolic pressures in the 240s and had an episode of nonsustained SVT with the heart rate of above 200 that resolved spontaneously. On tree pruner bed, patient continues to be in sinus rhythm throughout his hospital stay and sinus bradycardia at night. CONSULTATIONS DURING THE HOSPITAL STAY: Included Dr. Santos from Cardiology. HOSPITALIZATION COURSE: Kenneth Hernadez is a 71-year-old male with history of recent Lyme, diagnosed and treated approximately 5 weeks ago, who presented to the hospital complaining of dyspnea on exertion. The patient was noted to have intermittent hypertension and was in trigeminy. Occasionally, he would get bradycardia with heart rate in the 40s. At this point, asymptomatic. He underwent cardiac stress test and was noted to be markedly hypertensive with SVT in the recovery phase. Otherwise, patient's nuclear images were unremarkable and low risk. Dr. Santos saw the patient in cardiology consultation and recommended treatment of the patient's hypertension and that most likely hypertension contributed to the patient's dyspnea on exertion. Patient is to follow up with primary care physician as outpatient. He does not have a primary care physician and our office is going to assist with helping him arrange for primary care physician followup. The patient is also recommended to follow up with Dr. Santos in 1 to 2 months after discharge. PHYSICAL EXAMINATION: At the time of discharge, please see daily progress notes. [id number]/[facility] #: [id number] MTDDanitza
[2017-03-24 14:49] LABS: Lyme Disease IgG Ab WB Positive (Negative)
== END 2017-03-22 20:00 | disposition home or self-care (01) | DRG 305 ==
LOC: ED 13:52 → MEDTELE 16:40 → OBSVTOIN 03-22 10:25
PROVIDERS: ADMIT Hospitalist; ATTEND Internal Medicine
DX: I10 Essential (primary) hypertension (principal); A69.20 Lyme disease, unspecified; I35.1 Nonrheumatic aortic (valve) insufficiency; I47.1 Supraventricular tachycardia; R00.8 Other abnormalities of heart beat; I45.10 Unspecified right bundle-branch block; R35.1 Nocturia; I83.93 Asymptomatic varicose veins of bilateral lower extremities; I77.819 Aortic ectasia, unspecified site; I49.3 Ventricular premature depolarization; Z87.891 Personal history of nicotine dependence; Z80.0 Family history of malignant neoplasm of digestive organs; Z72.89 Other problems related to lifestyle; Z82.49 Family history of ischemic heart disease and other diseases of the circulatory system
CPT/HCPCS: 36415; 71020; 78452; 80048; 80053; 80061; 83036; 83605; 83735; 83880; 84443; 84484; 85025; 85379; 85610; 86617; 86618; 87040; 93005; 93017; 93306; 99201; A9270-GY; A9502; G0463; J0696; J1644